=== PATIENT | female | born 1945 | race Native Hawaiian/Other Pacific Islander ===

== ENCOUNTER 2017-08-20 08:22 | Day surgery (SDC) | payer MEDICARE ==
[2017-08-13 07:22] VITALS: BMI 28.3
[2017-08-20 08:53] LABS: BASO # 0.02 K/mm3 (0.0-2.0); BASO % 0.4 % (0.0-3.0); EOS # 0.1 (0.0-0.7); EOS % 2.5 % (1.5-5.0); GRAN # 3.01 (1.4-6.5); GRAN % 57.2 % (50.0-68.0); HEMOGLOBIN 15.1 g/dL (12.0-16.0); LYMPH # 1.8 (1.2-3.4); MEAN CELL VOLUME 84.9 fl (80.0-105.0); MEAN CORPUSCULAR HEMOGLOBIN 28.1 pg (25.0-35.0); MEAN PLATELET VOLUME 8.8 fl (7.0-11.0); MONO # 0.3 (0.1-0.6); MONO % 4.9 % (1.0-6.0); RBC 5.38 10^6/uL (3.5-6.1); RED CELL DISTRIBUTION WIDTH 13.4 % (11.5-14.5); WHITE BLOOD COUNT 5.3 10^3/ul (4.5-11.0)
[2017-08-20 09:01] LABS: INR 1.02 (0.93-1.08); PARTIAL THROMBOPLASTIN TIME 34.4 Seconds (25.1-36.5); PROTHROMBIN TIME 11.7 SECONDS (9.4-12.5)
[2017-08-20 10:29] LABS: BLOOD UREA NITROGEN 11 mg/dL (7-21); CALCIUM 8.9 mg/dL (8.4-10.5); GFR AFRICAN-AMERICAN > 60; GFR NON-AFRICAN AMERICAN > 60
[2017-08-20] MEDS ORDERED: Midazolam 2 MG/2 ML VIAL ONE (11:17)
[2017-08-20] MEDS ORDERED: Oxycodone/Acetaminophen 5/325 mg Tab PO PRN (12:34)
[2017-08-20] MEDS ORDERED: Sodium Chloride 0.45% 1,000 ML IV SCH (12:45)
[2017-08-20 13:42] VITALS: RESP 20; TEMP 98.1
[2017-08-20 14:34] VITALS: BP 136/87; PULSE 75; O2SAT 95
--- NOTE | 2017-08-20 14:39 | RAD ---
HISTORY: Right lung biopsy COMPARISON: 08/20/2017 CT-guided biopsy right lower lobe pulmonary nodule FINDINGS: LUNGS: No active pulmonary disease. PLEURA: No significant pleural effusion identified, no pneumothorax apparent. CARDIOVASCULAR: Normal. OSSEOUS STRUCTURES: No significant abnormalities. VISUALIZED UPPER ABDOMEN: Normal. OTHER FINDINGS: None. IMPRESSION: No active disease. No pneumothorax status post right lung biopsy.
--- NOTE | 2017-08-20 14:49 | CT ---
PROCEDURE: CT guided right lower lobe lung biopsy biopsy. HISTORY: History papillary thyroid cancer. 11 mm right lower lobe lung nodule. Evaluate for metastatic disease PHYSICIAN(S): Rosalio Quinn MD. TECHNIQUE: The relative risks and indications of the procedure were explained to the patient and consent obtained. The patient was placed prone on the CT scanner and preliminary images through the lung bases obtained. Conscious sedation and monitoring were provided throughout the procedure by a nurse. There is 11 mm well-circumscribed nodule in the right lower lobe posteriorly. A oblique right posterior approach was selected and the area prepped and draped in the usual sterile fashion. 1% Xylocaine was used to anesthetize the skin and soft tissues. A 19 gauge guiding needle was advanced into the 11 mm right lower lobe nodule. Its position was confirmed with CT. Using coaxial technique, multiple core biopsies were obtained. The postprocedure images show no evidence of large pneumothorax or significant hemorrhage. IMPRESSION: 1. CT-guided right lower lobe lung biopsy as described above.
== END 2017-08-20 15:30 | disposition home or self-care (01) ==
LOC: SDS 08:22
PROVIDERS: ATTEND Radiology Vascular & Interventional Radiology
DX: J84.10 Pulmonary fibrosis, unspecified (principal); R05 Cough; Z85.850 Personal history of malignant neoplasm of thyroid; Z86.19 Personal history of other infectious and parasitic diseases; Z90.710 Acquired absence of both cervix and uterus
CPT/HCPCS: 32405; 36415; 71045; 77012; 80048; 85025; 85610; 85730; 88305; J2250; J2405; J3010; J7030